=== PATIENT | male | born 1980 | race Caucasian/White ===

== ENCOUNTER 2017-12-25 14:36 | Emergency (ER) | payer OTHER ==
[~2017-12-25] VITALS: Ht 195.6 cm; Wt 115.7 kg
[2017-12-25 14:42] VITALS: BP 145/89; Ht 195.6 cm; Wt 115.7 kg
== END 2017-12-25 17:03 | disposition home or self-care (01) ==
LOC: ED 14:36
DX: S61.217A Laceration without foreign body of left little finger without damage to nail, initial encounter (principal); W22.8XXA Striking against or struck by other objects, initial encounter; Y93.89 Activity, other specified; Y92.89 Other specified places as the place of occurrence of the external cause; Y99.8 Other external cause status
CPT/HCPCS: A4570; J2001

== ENCOUNTER 2018-01-03 07:40 | Emergency (ER) | payer OTHER ==
[~2018-01-03] VITALS: Ht 195.6 cm; Wt 117.9 kg
[2018-01-03 07:42] VITALS: BP 135/93; Ht 195.6 cm; Wt 117.9 kg
== END 2018-01-03 08:08 | disposition home or self-care (01) ==
LOC: ED 07:40
DX: S61.217D Laceration without foreign body of left little finger without damage to nail, subsequent encounter (principal); X58.XXXD Exposure to other specified factors, subsequent encounter